=== PATIENT | female | born 1980 | race Caucasian/White ===

== ENCOUNTER 2016-06-07 02:29 | Emergency (ER) | payer OTHER ==
[~2016-06-07] VITALS: Ht 160 cm; Wt 67.3 kg
[~2016-06-07 02:29] MED LIST: ANIMAL CHEWS1 EACH PO; BACTRIM,SEPT1 TABLET PO; BIOTIN1000 MICRO PO; FLEXERIL10 MG PO; MOTRIN600 MG PO; PEPCID20 MG PO; PROBIOTIC1 EAC1 PO; VITAMIN C1000 M1 PO
[2016-06-07] MEDS ORDERED: AUGMENTIN875 MG PO (04:21)
[2016-06-07 04:36] VITALS: BP 133/78
== END 2016-06-07 04:41 | disposition home or self-care (01) ==
LOC: EME 02:29
DX: J02.9 Acute pharyngitis, unspecified (principal)
CPT/HCPCS: 87651 90; 99281; 99284

== ENCOUNTER 2017-03-05 16:24 | Emergency (ER) | payer OTHER ==
[~2017-03-05] VITALS: Ht 160 cm; Wt 63.7 kg
[~2017-03-05 16:24] MED LIST changes: +AUGMENTIN875 MG PO
[2017-03-05 17:19] LABS: HEMATOCRIT 34.6 % (36.0-46.0); MCH 28.6 PG (29.0-34.0); MCHC 33.2 G/DL (30.0-36.0); MCV 86.1 FL (83-99); MEAN PLAT.VOLUME 11.2 uM^3 (9.5-12.4); PLATELET COUNT 337 K/uL (156-360); RBC DIS.WIDTH-CV 13.5 % (11.8-14.6); RBC DIS.WIDTH-SD 41.7 % (39-53); RED BLOOD COUNT 4.02 M/uL (3.80-5.20); WHITE BLOOD COUNT 6.3 K/uL (4.1-10.2)
[2017-03-05 17:28] LABS: CHLORIDE 105 mEq/L (99-109); POTASSIUM 4.4 mEq/L (3.7-5.4); SODIUM 140 mEq/L (136-147)
[2017-03-05 17:30] LABS: GLUCOSE 93 mg/dL (70-99)
[2017-03-05 17:31] LABS: ANION GAP 10 MEQ/L (2-14)
[2017-03-05 17:32] LABS: TOTAL BILIRUBIN 0.4 mg/dL (0.0-1.0)
[2017-03-05 17:33] LABS: ALKALINE PHOSPHATASE 85 IU/L (3-129)
[2017-03-05 17:34] LABS: GFR ESTIMATE (CALCULATED) > 59 mL/min/
[2017-03-05 17:35] LABS: UREA NITROGEN (BUN) 10 mg/dL (9-23)
[2017-03-05 17:43] LABS: QUANTITATIVE HCG < 4.0 MIU/ML
[2017-03-05 19:21] LABS: ADD MIUA? YES; BILIRUBIN NEGATIVE; BLOOD MODERATE; COLOR YELLOW ((YELLOW)); GLUCOSE (STRIP) NEGATIVE; KETONES NEGATIVE; LEUKOCYTES NEGATIVE; NITRITE NEGATIVE; PROTEIN (STRIP) NEGATIVE; UROBILINOGEN 0.2 MG/DL (0.2-1.0)
[2017-03-05 19:24] LABS: BACTERIA RARE /HPF; EPITHELIAL CELLS RARE /HPF; MUCUS 1+ /LPF; RED BLOOD CELLS 0-5 /HPF (0-5); UCUL ADDED? NO; WHITE BLOOD CELLS 0-5 /HPF (0-5)
[2017-03-05] MEDS ORDERED: PROVERA,CYCRIN10 MG PO (20:49)
[2017-03-05 21:05] VITALS: BP 151/71
== END 2017-03-05 21:06 | disposition home or self-care (01) ==
LOC: EME 16:24
DX: N93.8 Other specified abnormal uterine and vaginal bleeding (principal)
CPT/HCPCS: 80053; 81003; 84702; 85027; 99281; 99284